=== PATIENT | female | born 1975 | race Caucasian/White ===

== ENCOUNTER 2017-12-17 17:56 | Emergency (ER) | payer OTHER ==
[2017-12-17 18:12] VITALS: BP 140/86; PULSE 76; TEMP 98.3; BMI 34.9
--- NOTE | 2017-12-17 18:12 | PDOC ---
Rapid Medical Evaluation Time Seen by Provider: 12/17/17 18:03 Medical Evaluation: Allergies Allergy/AdvReac Type Severity Reaction Status Date / Time erythromycin lactobionate Allergy FEVER; N/V Verified 05/28/14 08:22 [From Erythrocin] ALBERTO Allergy Swelling Uncoded 05/28/14 08:22 12/17/17 18:07 The patient presents with a chief complaint of: [Chest pain for several months, today started sweating and having palpitations. Has RUQ pain, one week ago had pain to the left upper back. ] I have performed a brief in-person evaluation of this patient. Pertinent physical exam findings: vss, [Afebrile, Lungs clear, RRR, Pain to mid upper abdomen. ] I have ordered the following: CBC, CMP, UA, UC, Lipase, amylase, urine preg] The patient will proceed to the ED for further evaluation. Discharge Disposition - Diagnosis Abdominal pain - Referrals - Patient Instructions - Post Discharge Activity
[2017-12-17 18:43] LABS: HCG,QUALITATIVE URINE NEGATIVE; URINE APPEARANCE CLEAR; URINE BILIRUBIN NEGATIVE (NEGATIVE); URINE BLOOD NEGATIVE (NEGATIVE); URINE COLOR STRAW; URINE GLUCOSE (UA) NEGATIVE (NEGATIVE); URINE KETONE NEGATIVE (NEGATIVE); URINE LEUK ESTERASE NEGATIVE (NEGATIVE); URINE NITRITE NEGATIVE (NEGATIVE); URINE PROTEIN NEGATIVE (NEGATIVE); URINE UROBILINOGEN NEGATIVE mg/dL (0.2-1.0)
[2017-12-17 18:46] LABS: BASO % 0.6 % (0-2.0); EOS % 1.8 % (0-4.5); HEMOGLOBIN 12.9 GM/dL (10.7-15.3); LYMPH % 30.3 % (8-40); MCH 30.1 pg (25.7-33.7); MCHC 33.1 g/dl (32.0-36.0); MEAN PLT VOLUME 10.3 fl (7.5-11.1); MONO % 4.3 % (3.8-10.2); PLATELET COUNT 211 K/MM3 (134-434); RBC 4.29 M/mm3 (3.60-5.2); RDW 13.9 % (11.6-15.6); WHITE BLOOD COUNT 7.8 K/mm3 (4.0-10.0)
[2017-12-17] MEDS ORDERED: KETOROLAC TROMETHAMINE 60 MG/2 ML VIAL IM ONE (18:47)
--- NOTE | 2017-12-17 18:52 | PDOC ---
Attending Attestation - Resident Resident Name: Albert Bunn - ED Attending Attestation I have performed the following: I have examined & evaluated the patient, The case was reviewed & discussed with the resident, I agree w/resident's findings & plan, Exceptions are as noted - HPI HPI: 12/17/17 18:51 42 YO FEMALE P/W of constant chest pressure,nonradiating assoc w palpitations and exertional dyspnea - Physicial Exam PE: 12/17/17 23:08 42 yo female p/w several weeks of atypical chest pain head ncat neck supple'no bruits lungs cta b/l cvs [id number] abd no rebound ext no rashes,no edema musculoskeletal tenderness to trapezious muscle neuro axox3,ambulatory psych appropriate - Medical Decision Making 12/17/17 23:10 ekg no ischemia,trop neg CTA CHEST no PE,no infiltrates pt to follow up with PCP
[2017-12-17] MEDS ORDERED: KETOROLAC TROMETHAMINE 60 MG/2 ML VIAL ONE (18:56)
--- NOTE | 2017-12-17 19:05 | PDOC ---
History of Present Illness - General Chief Complaint: Chest Pain Stated Complaint: CHEST PAIN Time Seen by Provider: 12/17/17 18:03 History Source: Patient Exam Limitations: No Limitations - History of Present Illness Initial Comments: 12/17/17 18:59 The patient is a 42F with a PMH of prediabetes who presents with CP. The patient states that she has retrosternal and R parasternal chest pressure which sometimes radiates to her neck and to her L shoulder. She says the pressure is constant, is associated with palpitations, and says she feels short of breath when she exerts herself. She denies any other symptoms including fever, chills, nausea, vomiting, abdominal pain, rashes, dysuria. She said she tried taking Motrin for her menstrual cramp pain and it did not help her chest pain. She took 1000mg of ibuprofen. The patient says she is concerned because she has a strong family history of ME's before the age of 50 on her mother's side of the family. Past History - Past Medical History Allergies/Adverse Reactions: Allergies Allergy/AdvReac Type Severity Reaction Status Date / Time erythromycin lactobionate Allergy FEVER; N/V Verified 12/17/17 18:09 [From Erythrocin] ALBERTO Allergy Swelling Uncoded 12/17/17 18:09 Home Medications: Ambulatory Orders NK [No Known Home Medication] 12/17/17 Asthma: No Cancer: No Cardiac Disorders: No COPD: No Diabetes: Yes (GESTATIONAL) HTN: No Seizures: No Thyroid Disease: No - Suicide/Smoking/Psychosocial Hx Smoking History: Never smoked Have you smoked in the past 12 months: No Information on smoking cessation initiated: No Hx Alcohol Use: No Drug/Substance Use Hx: No Substance Use Type: None Hx Substance Use Treatment: No Review of Systems - Review of Systems Able to Perform ROS?: Yes Comments:: 12/17/17 19:02 GENERAL/CONSTITUTIONAL: No fever or chills. No weakness. HEAD, EYES, EARS, NOSE AND THROAT: No change in vision. No ear pain or discharge. No sore throat. CARDIOVASCULAR: Positive for chest pressure and palpitations. No chest pain or lightheadedness. RESPIRATORY: Positive for dyspnea on exertion. No cough, wheezing, or hemoptysis. GASTROINTESTINAL: No nausea, vomiting, diarrhea, constipation, or abdominal pain. GENITOURINARY: No dysuria, frequency, hematuria, or change in urination. MUSCULOSKELETAL: No joint or muscle swelling or pain. No neck or back pain. SKIN: No rash or lesions. NEUROLOGIC: No headache, numbness, tingling, weakness, loss of consciousness, or change in strength/sensation. ENDOCRINE: No increased thirst. No abnormal weight change. HEMATOLOGIC/LYMPHATIC: No anemia, easy bleeding, or history of blood clots. ALLERGIC/IMMUNOLOGIC: No hives or skin allergy. Is the patient limited Peruvian proficient: No *Physical Exam - Vital Signs Last Vital Signs Temp Pulse Resp BP Pulse Ox 98.3 F 76 18 140/86 100 12/17/17 18:10 12/17/17 18:10 12/17/17 18:10 12/17/17 18:10 12/17/17 18:10 - Physical Exam Comments: 12/17/17 19:03 GENERAL: Well developed, well nourished. Awake and alert. No acute distress. HEENT: Normocephalic, atraumatic. Hearing grossly normal. Moist mucous membranes. PERRLA, EOMI. No conjunctival pallor. Sclera are non-icteric. NECK: Supple. Full ROM. No JVD. CARDIOVASCULAR: Point tenderness to palpation over R parasternal border. Regular rate and rhythm. No murmurs, rubs, or gallops. PULMONARY: No evidence of respiratory distress. Lungs clear to auscultation bilaterally. No wheezing, rales or rhonchi. ABDOMINAL: Soft. Non-tender. Non-distended. No rebound or guarding. GENITOURINARY: No CVA tenderness bilaterally. MUSCULOSKELETAL: Normal range of motion at all joints. No bony deformities or tenderness. EXTREMITIES: No cyanosis. No clubbing. No edema. No calf tenderness. SKIN: Warm and dry. Normal capillary refill. No rashes. No jaundice. NEUROLOGICAL: Alert, awake, appropriate. Cranial nerves 2-12 intact. Normal speech. Gait is normal without ataxia. PSYCHIATRIC: Cooperative. Good eye contact. Appropriate mood and affect. Heart Score/ECG Review - History History: Slightly suspicious - Electrocardiogram EKG: Non specific repolarization disturbance - Age Age: </= 45 - Risk Factors Risk Factors Heart Score: Yes Hx Diabetes Based on the list above the patient has:: 1-2 risk factors - Troponin Troponin: </= normal limit - Score Heart Score - Total: 2 #1 ECG reviewed & interpreted by me at: 19:04 General ECG Interpretation: Sinus Rhythm, Normal Rate, Normal Intervals, No acute ischemic changes Compared to previous ECG there are: Previous ECG unavail 12/17/17 19:04 NSR Rate 64 QRS 78 QTc 414 V2-V3 t-wave inversions ED Treatment Course - LABORATORY CBC & Chemistry Diagram: 12/17/17 18:26 12/17/17 18:26 - ADDITIONAL ORDERS Additional order review: Laboratory Results 12/17/17 18:32 Urine Color Straw Urine Appearance Clear Urine pH 5.0 Ur Specific [place] 1.016 Urine Protein Negative Urine Glucose (UA) Negative Urine Ketones Negative Urine Blood Negative Urine Nitrite Negative Urine Bilirubin Negative Urine Urobilinogen Negative Ur Leukocyte Esterase Negative Urine HCG, Qual Negative 12/17/17 18:26 RBC 4.29 MCV 91.0 MCHC 33.1 RDW 13.9 MPV 10.3 Neutrophils % 63.0 Lymphocytes % 30.3 Monocytes % 4.3 Eosinophils % 1.8 Basophils % 0.6 - RADIOLOGY Radiology Studies Ordered: Category Date Time Status CHEST PA & LAT [RAD] Stat Radiology 12/17/17 18:56 Ordered Medical Decision Making - Medical Decision Making 12/17/17 19:05 The patient is a 42F with a PMH of prediabetes who presents to the ER with 2 months of chest pressure. Her chest pressure is atypical. EKG NSR with t-wave inversions in V2 and V3. The patient likely has atypical chest pain as evidence by her reproducible pain and tenderness to palpation. Pending labs and imaging. 12/17/17 21:19 D-Dimer [id number], order placed for CTA. Other labs WNL. 12/17/17 23:06 CTA Read: Impression: 1. No evidence of pulmonary artery embolus. 2. Linear atelectasis versus scarring in the upper lobes, right middle lobe and both lung bases. Otherwise clear lungs. Will d/c home with PCP f/u as trop are negative and no PE present. *DC/Admit/Observation/Transfer Diagnosis at time of Disposition: Atypical chest pain - Discharge Dispostion Disposition: HOME Condition at time of disposition: Stable Admit: No - Referrals Referrals: Sahil Morales [Primary Care Provider] - - Patient Instructions Printed Discharge Instructions: DI for Atypical Chest Pain Additional Instructions: Please return to the ER if symptoms persist, worsen, or new symptoms arise. Please follow up with your primary care physician in 2-3 days. Please return to the ER if you have any signs or symptoms of chest pain, shortness of breath, uncontrollable fever, chills, nausea, vomiting, numbness, tingling, or weakness in any part of your body, changes in vision, or slurred speech. - Post Discharge Activity
[2017-12-17 19:15] LABS: ALBUMIN 3.6 g/dl (3.4-5.0); ALK PHOS 65 U/L (45-117); AMYLASE 63 U/L (25-115); ANION GAP 9 (8-16); BILIRUBIN,TOTAL 0.3 mg/dL (0.2-1.0); BLOOD UREA NITROGEN 19 mg/dL (7-18); CALCIUM 8.6 mg/dL (8.5-10.1); CHLORIDE 106 mmol/L (98-107); CO2 25 mmol/L (21-32); CREATININE 0.9 mg/dL (0.55-1.02); GLUCOSE,RANDOM 103 mg/dL (74-106); LIPASE 167 U/L (73-393); POTASSIUM 4.1 mmol/L (3.5-5.1); SGOT/AST 12 U/L (15-37); SGPT/ALT 25 U/L (12-78); SODIUM 140 mmol/L (136-145); TOT PROT 7.1 g/dl (6.4-8.2)
[2017-12-17] MEDS ORDERED: SODIUM CHLORIDE 0.9% 1000 ML INFUS.BAG IV ONE (22:38)
--- NOTE | 2017-12-18 14:06 | EKG ---
Test Reason : Blood Pressure : / mmHG Vent. Rate : 064 BPM Atrial Rate : 064 BPM P-R Int : 124 ms QRS Dur : 078 ms QT Int : 402 ms P-R-T Axes : 055 -21 033 degrees QTc Int : 414 ms NORMAL SINUS RHYTHM POSSIBLE LEFT ATRIAL ENLARGEMENT BORDERLINE ECG NO PREVIOUS ECGS AVAILABLE Confirmed by MD WOO, LAWRENCE ([id number]) on 12/18/2017 2:06:19 PM Referred By: Confirmed By:LAWRENCE BERKOWITZ MD
== END 2017-12-18 00:06 | disposition home or self-care (01) ==
LOC: JER 17:56
PROC: 3E0233Z Introduction of Anti-inflammatory into Muscle, Percutaneous Approach (ICD-10-PCS; principal; 2017-12-17)
DX: R07.89 Other chest pain (principal); R73.03 Prediabetes
CPT/HCPCS: 36415; 71046-TC; 71275-TC; 80053; 81003; 82150; 82550; 83690; 84484; 84703; 85025; 85379; 87086; 93005; 93010; 96372; 99283-25